=== PATIENT | female | born 2000 | race Caucasian/White ===

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

== ENCOUNTER 2019-08-25 18:56 | Emergency (ER) | payer BC ==
[2019-08-25 19:09] VITALS: BP 127/78
--- NOTE | 2019-08-25 19:17 | ER Document Report ---
ED Medical Screen (RME) - General Chief Complaint: Chest Pain Stated Complaint: CHEST PAIN Time Seen by Provider: 08/25/19 19:15 Primary Care Provider: NIR AVILES PA [Primary Care Provider] - Follow up as needed Mode of Arrival: Ambulatory Information source: Patient Notes: Patient presents complaining of chest pain across the anterior right upper and left upper chest area off and on today. Patient denies any cough cold symptoms or fever. Patient denies any long distance travel. Patient denies any dyspnea. Patient states pain is presently gone at this time. I have greeted and performed a rapid initial assessment of this patient. A comprehensive ED assessment and evaluation of the patient, analysis of test results and completion of the medical decision making process will be conducted by additional ED providers. TRAVEL OUTSIDE OF THE [place] IN LAST 30 DAYS: No Physical Exam - Vital signs Vitals: Temp Pulse Resp BP Pulse Ox 98.2 F 63 16 127/78 H 99 08/25/19 19:07 08/25/19 19:07 08/25/19 19:07 08/25/19 19:07 08/25/19 19:07 - Respiratory Respiratory status: No respiratory distress Chest status: Nontender - Cardiovascular Rhythm: Regular Heart sounds: S1 appreciated, S2 appreciated Course - Vital Signs Vital signs: Temp Pulse Resp BP Pulse Ox 98.2 F 63 16 127/78 H 99 08/25/19 19:07 08/25/19 19:07 08/25/19 19:07 08/25/19 19:07 08/25/19 19:07 Doctor's Discharge - Discharge Referrals: NIR AVILES PA [Primary Care Provider] - Follow up as needed
--- NOTE | 2019-08-25 19:45 | ER Document Report ---
ED Cardiac - General Chief Complaint: Chest Pain Stated Complaint: CHEST PAIN Time Seen by Provider: 08/25/19 19:15 Primary Care Provider: NIR AVILES PA [NO LOCAL MD] - Follow up in 1 week Mode of Arrival: Ambulatory Information source: Patient TRAVEL OUTSIDE OF THE [place] IN LAST 30 DAYS: No - HPI Notes: Patient presents with chest pain. She states that started this morning. She states it is a tight sensation and goes across her chest. It radiates from the left to the right. She does not know of any increasing or decreasing factors. It is been mild to moderate in intensity. It is been intermittently happening all day. She states that she has been in the emergency department is only happened one time. No previous history of similar pain. No known trauma. No cough cold congestion. No fevers. No known exposure to coronavirus. No rashes. - Related Data Allergies/Adverse Reactions: No Known Allergies Allergy (Unverified 08/25/19 19:17) Home Medications: IUD Past Medical History - General Information source: Patient - Social History Smoking Status: Never Smoker Frequency of alcohol use: None Drug Abuse: None Family History: Reviewed & Not Pertinent Patient has suicidal ideation: No Patient has homicidal ideation: No Review of Systems - Review of Systems Constitutional: denies: Chills, Fever Cardiovascular: Chest pain. denies: Dyspnea Respiratory: denies: Cough, Short of breath -: Yes All other systems reviewed and negative Physical Exam - Vital signs Vitals: Temp Pulse Resp BP Pulse Ox 98.2 F 63 16 127/78 H 99 08/25/19 19:07 08/25/19 19:07 08/25/19 19:07 08/25/19 19:07 08/25/19 19:07 Interpretation: Normal - General General appearance: Appears well, Alert - HEENT Head: Normocephalic, Atraumatic Eyes: Normal Pupils: PERRL - Respiratory Respiratory status: No respiratory distress Chest status: Nontender Breath sounds: Normal Chest palpation: Normal - Cardiovascular Rhythm: Regular Heart sounds: Normal auscultation Murmur: No - Abdominal Inspection: Normal Distension: No distension Bowel sounds: Normal Tenderness: Nontender Organomegaly: No organomegaly - Back Back: Normal, Nontender - Extremities General upper extremity: Normal inspection, Nontender, Normal color, Normal ROM, Normal temperature General lower extremity: Normal inspection, Nontender, Normal color, Normal ROM, Normal temperature, Normal weight bearing. No: Kim's sign - Neurological Neuro grossly intact: Yes Cognition: Normal Orientation: AAOx4 [place] Coma Scale Eye Opening: Spontaneous [place] Coma Scale Verbal: Oriented [place] Coma Scale Motor: Obeys Commands [place] Coma Scale Total: 15 Speech: Normal Motor strength normal: LUE, RUE, LLE, RLE Sensory: Normal - Psychological Associated symptoms: Normal affect, Normal mood - Skin Skin Temperature: Warm Skin Moisture: Dry Skin Color: Normal Course - Vital Signs Vital signs: Temp Pulse Resp BP Pulse Ox 98.2 F 63 16 127/78 H 99 08/25/19 19:07 08/25/19 19:07 08/25/19 19:07 08/25/19 19:07 08/25/19 19:07 - Diagnostic Test Radiology reviewed: Image reviewed, Reports reviewed - EKG Interpretation by Me EKG shows normal: Sinus rhythm Rate: Normal - 72 Rhythm: NSR [place]/QRS: No: Right axis deviation, Left axis deviation Discharge - Discharge Clinical Impression: Chest pain Qualifiers: Chest pain type: unspecified Qualified Code(s): R07.9 - Chest pain, unspecified Condition: Stable Disposition: HOME, SELF-CARE Instructions: Chest Pain of Unclear Cause ([facility]) Additional Instructions: Follow-up with your primary care doctor as needed. Referrals: NIR AVILES PA [NO LOCAL MD] - Follow up in 1 week
--- NOTE | 2019-08-25 21:24 | RADIOLOGY REPORT (SQ) ---
EXAM DESCRIPTION: XR CHEST 2 VIEWS COMPLETED DATE/TME: 08/25/2019 19:15 CLINICAL HISTORY: 19 years Female cp COMPARISON: None. FINDINGS: The cardiomediastinal silhouette appears unremarkable. No consolidating infiltrates or pleural effusions. No pneumothorax. IMPRESSION: No acute abnormality is identified.
--- NOTE | 2019-08-26 09:23 | EKG REPORT ---
SEVERITY:- NORMAL ECG - SINUS RHYTHM : Confirmed by: Gideon Fabian 26-Aug-2019 09:22:43
== END 2019-08-25 20:23 | disposition home or self-care (01) ==
LOC: ER 18:56
DX: R07.9 Chest pain, unspecified (principal)
CPT/HCPCS: 71046; 93005; 93010; 99285

== ENCOUNTER → 2020-03-05 | Outpatient (CLI) | payer OTHER ==
--- NOTE | 2020-03-05 08:37 | RADIOLOGY REPORT (SQ) ---
EXAM DESCRIPTION: U/S NON OB PEL TV W/DOPPLER IMAGES COMPLETED DATE/TIME: 03/05/2020 8:23 am REASON FOR STUDY: N93.8 OTHER SPECIFIED ABNORMAL UTERINE AND VAGINAL BLEEDING N93.8 OTHER SPECIFIED ABNORMAL UTERINE AND VAGINAL BLEEDING COMPARISON: None. TECHNIQUE: Dynamic and static grayscale images acquired of the pelvis via transvaginal approach and recorded on PACS. Additional selected color Doppler and spectral images recorded. LIMITATIONS: None. FINDINGS: UTERUS: Contour normal. No mass. ENDOMETRIAL STRIPE: IUD is visualized within the lower uterine segment and cervix. CERVIX: No nabothian cysts. RIGHT OVARY AND DOPPLER: Normal size. Ovarian follicles. Normal arterial vascular flow without evid ence for torsion. LEFT OVARY AND DOPPLER: Normal size. Ovarian follicles. Normal arterial vascular flow without eviden ce for torsion. FREE FLUID: None noted. OTHER: No other significant finding. MEASUREMENTS: UTERUS: 7.0 x 3.2 x 3.9 cm ENDOMETRIAL STRIPE: 0.6 cm RIGHT OVARY: 3.1 x 2.0 x 2.4 cm LEFT OVARY: 3.8 x 1.9 x 1.9 cm IMPRESSION: 1. IUD is visualized within the lower uterine segment and cervix. Correlation simran frazier TECHNICAL DOCUMENTATION: JOB ID: [id number] [employer]- All Rights Reserved Rev-10/12 Reading location - IP/workstation name: [email or web address]
== END ==
LOC: RAD 07:56
PROVIDERS: ATTEND Physician Assistant
DX: N93.8 Other specified abnormal uterine and vaginal bleeding (principal); Z97.5 Presence of (intrauterine) contraceptive device
CPT/HCPCS: 76830; 93976